=== PATIENT | male | born 2000 | race African-American/Black ===

== ENCOUNTER 2025-04-07 10:40 | Emergency (ER) | payer OTHER ==
[2025-04-07 10:51] VITALS: BP 131/81; PULSE 88; RESP 18; TEMP 98.9; BMI 29.9
[2025-04-07] MEDS ORDERED: KETOROLAC TROMETHAMINE 30 MG/1 ML VIAL ONE (11:42)
[2025-04-07] MEDS ORDERED: METOCLOPRAMIDE HCL INJECTION 10 MG/2 ML VIAL ONE (11:43)
[2025-04-07] MEDS: SODIUM CHLORIDE 1,000 ML IV ONE (11:58)
[2025-04-07] MEDS: KETOROLAC TROMETHAMINE 30 MG/1 ML VIAL IVPUSH ONE (11:58)
[2025-04-07] MEDS: METOCLOPRAMIDE HCL INJECTION 10 MG/2 ML VIAL IVPUSH STA (11:58)
[2025-04-07 12:07] LABS: ABSOLUTE IMMATURE GRANULOCYTES 0.03 x10^3/uL (0.0-0.031); BASOPHILS # 0.04 x10^3/uL (0.01-0.08); EOSINOPHIL % 2.4 % (0.8-7.0); EOSINOPHILS # 0.15 x10^3/uL (0.04-0.54); HEMATOCRIT 45.3 % (40.1-51.0); HEMOGLOBIN 14.4 g/dL (13.7-17.5); MCHC 31.8 g/dl (32.3-36.5); MEAN CELL VOLUME 89.5 fl (79.0-92.2); MEAN PLT VOLUME 10.7 fl (9.4-12.4); MONOCYTE # 0.66 x10^3/uL (0.30-0.82); MONOCYTE % 10.5 % (5.3-12.2); PLATELET COUNT 237 x10^3/uL (163-337)
[2025-04-07 12:24] LABS: POTASSIUM 4.6 mmol/L (3.5-5.1)
[2025-04-07 12:26] LABS: ALBUMIN 4.1 g/dl (3.4-5.0); BLOOD UREA NITROGEN 17.1 mg/dL (7-18); CALCIUM 9.6 mg/dL (8.5-10.1)
[2025-04-07 12:31] LABS: BILIRUBIN,TOTAL 0.2 mg/dL (0.2-1); TOT PROT 7.8 g/dl (6.4-8.2)
[2025-04-07 12:32] LABS: CREATININE 1.4 mg/dL (0.55-1.3)
== END 2025-04-07 14:23 | disposition home or self-care (01) ==
LOC: JER 10:40
PROC: 3E0333Z Introduction of Anti-inflammatory into Peripheral Vein, Percutaneous Approach (ICD-10-PCS; principal; 2025-04-07)
PROC: 3E033GC Introduction of Other Therapeutic Substance into Peripheral Vein, Percutaneous Approach (ICD-10-PCS; 2025-04-07)
PROC: 3E0337Z Introduction of Electrolytic and Water Balance Substance into Peripheral Vein, Percutaneous Approach (ICD-10-PCS; 2025-04-07)
DX: R51.9 Headache, unspecified (principal); R11.2 Nausea with vomiting, unspecified
CPT/HCPCS: 36415; 80053; 83690; 85025; 99284-25